=== PATIENT | male | born 1980 | race Two or more races ===

== ENCOUNTER 2019-01-29 00:20 | Emergency (ER) | payer SELFPAY ==
[~2019-01-29] VITALS: Ht 170.2 cm; Wt 90.7 kg
--- NOTE | 2019-01-29 00:52 | NUR ---
BIBSELF. C/O "SOB/TIGHTNESS/PRESSURE IN CHEST X 3 HOURS" -ACUTE DISTRESS AT THIS TIME. -PAIN AT THIS TIME.
[2019-01-29] MEDS ORDERED: predniSONE 20 MG TABLET ONE (01:15)
[2019-01-29] MEDS ORDERED: IPRATROPIUM NEB FS 0.5 MG/2.5 ML AMPUL.NEB ONE (01:19)
[2019-01-29] MEDS ORDERED: ALBUTEROL FS 2.5 MG/3 ML VIAL.NEB ONE (01:19)
[2019-01-29] MEDS ORDERED: IPRATROPIUM NEB FS 0.5 MG/2.5 ML AMPUL.NEB NEB ONE (01:30)
[2019-01-29] MEDS ORDERED: ALBUTEROL FS 2.5 MG/3 ML VIAL.NEB NEB ONE (01:30)
[2019-01-29] MEDS ORDERED: predniSONE 20 MG TABLET PO ONE (01:30)
[2019-01-29 02:25] VITALS: BP 133/78
== END 2019-01-29 02:25 | disposition home or self-care (01) ==
LOC: ER 00:27
DX: J45.909 Unspecified asthma, uncomplicated (principal); G47.30 Sleep apnea, unspecified; F17.200 Nicotine dependence, unspecified, uncomplicated
CPT/HCPCS: 94640; 99283; A4606; J7512